=== PATIENT | male | born 1965 | race Caucasian/White ===

== ENCOUNTER 2016-12-08 03:48 | Inpatient (IN) | payer OTHER ==
--- NOTE | 2016-12-08 04:09 | HP ---
CIWA Score - CIWA Score Nausea/Vomitin Muscle Tremors: 4-Moderate,w/Arms Extend Anxiety: 4-Mod. Anxious/Guarded Agitation: 4-Moderately Restless Paroxysmal Sweats: 3 Orientation: 0-Oriented Tacttile Disturbances: 3-Moderate Itch/Numb/Burn Auditory Disturbances: 0-None Visual Disturbances: 0-None Headache: 1-Very Mild CIWA-Ar Total Score: 22 Admission ROS BHS - HPI Chief Complaint: C/O WITHDRAWAL SX'S. SEEKING DETOX Allergies/Adverse Reactions: Allergies Allergy/AdvReac Type Severity Reaction Status Date / Time No Known Allergies Allergy Verified 12/08/16 04:03 History of Present Illness: 51 Y.O. MALE WITH ALCOHOLISM KNOWN TO [facility] ADMITTED FOR DETOX TXMENT. CLIENT WAS SENT BY [facility] AFTER GOING THERE FOR ABD/N/V. CLIENT WAS DX WITH THROMBOCYTOPENIA 2/2 CIRRHOSIS AND MEDICALLY CLEARED FOR DETOX/REHAB TXMENT AT THIS TIME. CLIENT PRESENTLY DENIES ANY C/O EXCEPT FOR WITHDRAWAL SX'S. REPORTS LONGEST SOBRIETY 1 YEAR. Exam Limitations: No Limitations - Ebola screening Have you traveled outside of the country in the last 21 days: No Have you had contact with anyone from an Ebola affected area: No Have you been sick,other than usual withdrawal symptoms: No Do you have a fever: No - Review of Systems Constitutional: Chills, Night Sweats, Changes in sleep EENT: reports: Dental Problems (DENTURES) Respiratory: reports: No Symptoms reported Cardiac: reports: No Symptoms Reported GI: reports: Nausea, Vomiting, Abdominal cramping : reports: No Symptoms Reported Musculoskeletal: reports: No Symptoms Reported Integumentary: reports: No Symptoms Reported Neuro: reports: Seizure (R/T ETOH WITHDRAWAL) Endocrine: reports: No Symptoms Reported Hematology: reports: Other (THROMBOCYTOPENIA) Psychiatric: reports: Anxious, Depressed Other Systems: Reviewed and Negative Patient History - Patient Medical History Hx Anemia: No Hx Asthma: Yes (on albuterol inhaler) Hx Chronic Obstructive Pulmonary Disease (COPD): No Hx Cancer: No Hx Cardiac Disorders: No Hx Congestive Heart Failure: No Hx Hypertension: Yes (NON COMPLAINT WITH MEDS OVER A MONTH) Hx Hypercholesterolemia: No Hx Pacemaker: No HX Cerebrovascular Accident: No Hx Seizures: No Hx Dementia: No Hx Diabetes: No Hx Gastrointestinal Disorders: Yes (upper gi bleeding admitted at [facility] in 11/28) Hx Liver Disease: Yes (cirrhosis) Hx Genitourinary Disorders: No Hx Sexually Transmitted Disorders: No Hx Renal Disease (ESRD): No Hx Thyroid Disease: No Hx Human Immunodeficiency Virus (HIV): No Hx Hepatitis C: No Hx Depression: Yes (AND ANXIETY) Hx Suicide Attempt: No Hx Bipolar Disorder: No Hx Schizophrenia: No Other Medical History: THROMBOCYTOPENIA 2/2 CIRROHSIS - Patient Surgical History Past Surgical History: No Hx Neurologic Surgery: No Hx Cataract Extraction: No Hx Cardiac Surgery: No Hx Lung Surgery: No Hx Breast Surgery: No Hx Breast Biopsy: No Hx Abdominal Surgery: No Hx Appendectomy: No Hx Cholecystectomy: No Hx Genitourinary Surgery: No Hx Section: No Hx Orthopedic Surgery: No Anesthesia Reaction: No - PPD History Previous Implant?: Yes Documented Results: Negative w/proof Implanted On Prior [facility] Admission?: Yes Date: 07/17/16 Results: 0MM PPD to be Administered?: No - Smoking Cessation Smoking history: Current every day smoker Aproximately how many cigarettes per day: 5 Cigars Per Day: 0 Hx Chewing Tobacco Use: No Initiated information on smoking cessation: Yes 'Breaking Loose' booklet given: 12/08/16 - Substance & Tx. History Hx Alcohol Use: Yes Hx Substance Use: Yes Substance Use Type: Alcohol Hx Substance Use Treatment: Yes ([facility]) - Substances Abused VODKA Route: Oral Frequency: Daily Amount used: 1 PINT Age of first use: 24 Date of Last Use: 12/07/16 Family Disease History - Family Disease History Family Disease History: Diabetes: Brother, Respiratory: Mother Admission Physical Exam [facility] Physical General Appearance: Yes: Mild Distress, Alcohol on Breath, Tremorous, Anxious HEENTM: Yes: EOMI, Normocephalic, Normal Voice, AMANDA, Pharynx Normal, Other ( DENTURES) Respiratory: Yes: Chest Non-Tender, Lungs Clear, Normal Breath Sounds, No Respiratory Distress, No Accessory Muscle Use Neck: Yes: No masses,lesions,Nodules, Supple, Trachea in good position Breast: Yes: Breast Exam Deferred Cardiology: Yes: Regular Rhythm, Regular Rate, S1, S2 Abdominal: Yes: Normal Bowel Sounds, Non Tender, Soft, Protuberent Genitourinary: Yes: Within Normal Limits Back: Yes: Normal Inspection Musculoskeletal: Yes: full range of Motion, Gait Steady Extremities: Yes: Normal Range of Motion, Non-Tender, Tremors Neurological: Yes: 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 intact, Fully Oriented, Alert, Motor Strength 5/5 Integumentary: Yes: Dry, Warm, Pitting Edema (3+ BLE) Lymphatic: Yes: Within Normal Limits - Diagnostic (1) Alcohol dependence with uncomplicated withdrawal Current Visit: No Status: Acute (2) Asthma Current Visit: No Status: Acute (3) Cirrhosis of liver Current Visit: No Status: Chronic Qualifiers: Hepatic cirrhosis type: alcoholic cirrhosis (4) Nicotine dependence Current Visit: Yes Status: Acute (5) Thrombocytopenia Current Visit: Yes Status: Acute (6) Alcohol related seizure Current Visit: Yes Status: Acute (7) HTN (hypertension) Current Visit: Yes Status: Acute Cleared for Admission S - Detox or Rehab [facility] Level of Care: Medically Managed Detox Regimen/Protocol: Librium BHS Breath Alcohol Content Breath Alcohol Content: 0.045 Vital Signs - Vital Signs Vital Signs Refused: No Temperature: 97.9 F Temperature Source: Oral Pulse Rate: 84 Respiratory Rate: 20 Blood Pressure: 140/71 BP Location: Left Arm Blood Pressure Position: Sitting - Height Height: 5 ft 3 in - Weight Weight: 90.718 kg Weight Measurement Method: Stated by Patient Body Mass Index (BMI): 35.4 Urine Drug Screen - Test Device Lot Number: [id number] Expiration Date: 08/15/18 - Control Is Test Valid: Yes - Results Drug Screen Negative: Yes
[2016-12-08 04:20] VITALS: BMI 35.4
[2016-12-08] MEDS ORDERED: P-EPHED 60MG/TRIPROLIDI 2.5MG TABLET PO PRN (04:22)
[2016-12-08] MEDS ORDERED: MAGNESIUM CITRATE 300 ML BOTTLE PO PRN (04:22)
[2016-12-08] MEDS ORDERED: hydrOXYzine PAMOATE 50 MG CAPSULE (FP) PO PRN (04:22)
[2016-12-08] MEDS ORDERED: guaiFENesin/D-METHORPHAN HB 10 ML UNIT-DOSE CUPS PO PRN (04:22)
[2016-12-08] MEDS ORDERED: ACETAMINOPHEN 325 MG TABLET (FP) PO PRN (04:22)
[2016-12-08] MEDS ORDERED: chlordiazePOXIDE HCL 25 MG CAPSULE PO PRN (04:22)
[2016-12-08] MEDS ORDERED: MAG HYDROX/AL HYDROX/SIMETH 30 ML UNIT-DOSE CUP PO PRN (04:22)
[2016-12-08] MEDS ORDERED: LOPERAMIDE HCL 2 MG CAPSULE PO PRN (04:22)
[2016-12-08] MEDS ORDERED: NICOTINE POLACRILEX 2 MG GUM BC PRN (04:22)
[2016-12-08] MEDS ORDERED: MENTHOL/PHENOL 1 EACH UD MM PRN (04:22)
[2016-12-08] MEDS ORDERED: MAGNESIUM HYDROX 2400MG/30ML ORAL SUSPENSION 30 ML CUP PO PRN (04:22)
[2016-12-08] MEDS ORDERED: ALBUTEROL SO4 2.5/IPRATROPIUM 0.5 INH SOL 3 ML VIAL.NEB. NEB PRN (04:28)
[2016-12-08] MEDS: chlordiazePOXIDE HCL 25 MG CAPSULE PO SCH ×4 (05:01→22:37)
[2016-12-08] MEDS: PANTOPRAZOLE 40 MG TABLET (FP) PO SCH (10:52)
[2016-12-08] MEDS: PRENATAL VITAMINS W/ FOLIC ACID TABLET (FP) PO SCH (10:54)
[2016-12-08] MEDS: NICOTINE 14 MG/24 HOURS TOPICAL PATCH TD SCH (10:54)
[2016-12-08 11:19] LABS: MCH 36.2 pg (25.7-33.7); MEAN CELL VOLUME 106.5 fl (80-96); MEAN PLT VOLUME 9.1 fl (7.5-11.1); RDW 15.6 % (11.9-15.9); WHITE BLOOD COUNT 2.3 K/mm3 (4.0-10.0)
[2016-12-08 11:21] LABS: PLATELET COUNT 18 K/MM3 (134-434)
[2016-12-08 11:27] LABS: ALBUMIN 2.3 g/dl (3.4-5.0); ANION GAP 11 (8-16); CALCIUM 7.3 mg/dL (8.5-10.1); CO2 27 mmol/L (21-32); GLUCOSE,RANDOM 184 mg/dL (74-106)
[2016-12-08 11:34] LABS: ALK PHOS 230 U/L (45-117); BILIRUBIN,TOTAL 6.8 mg/dL (0.2-1.0); CREATININE 0.8 mg/dL (0.7-1.3); SGOT/AST 74 U/L (15-37); SGPT/ALT 32 U/L (12-78); TOT PROT 5.6 g/dl (6.4-8.2)
[2016-12-08 11:48] LABS: ANISOCYTOSIS 2+; HYPOCHROMIA 1+; PLATELET COMMENT2 NO CLOTTING DETECTED; PLATELET ESTIMATE MARKEDLY DECREASED (NORMAL); POIKILOCYTOSIS 2+
--- NOTE | 2016-12-08 12:38 | PN ---
[facility] Progress Note Note: Pt. was admitted earlier this morning, C/O withdrawal sx. Vital Signs - 8 hr 12/08/16 12/08/16 12/08/16 06:23 06:54 09:29 Temperature 98.0 F 98.3 F Pulse Rate 84 86 Respiratory 16 18 18 Rate Blood Pressure 115/75 131/82 Laboratory Tests 12/08/16 12/08/16 09:15 09:15 WBC 2.3 L D RBC 3.29 L Hgb 11.9 D Hct 35.0 L MCV 106.5 H MCHC 34.0 RDW 15.6 Plt Count 18 L* D MPV 9.1 D Differential Comment Slide scanned Platelet Estimate Markedly decreased Platelet Comment No clotting detected Hypochromic-Microcytic 1+ Poikilocytosis 2+ Anisocytosis 2+ Macrocytosis 2+ Sodium 141 Potassium 3.2 L Chloride 103 Carbon Dioxide 27 Anion Gap 11 BUN 5 L D Creatinine 0.8 Creat Clearance w eGFR > 60 Random Glucose 184 H D Calcium 7.3 L D Total Bilirubin 6.8 H D AST 74 H D ALT 32 Alkaline Phosphatase 230 H D Total Protein 5.6 L Albumin 2.3 L D K+ 3.2, Platelets 18,000 We'll repeat labs on 12/10/16
--- NOTE | 2016-12-08 12:54 | CONSULT ---
[facility] Psychiatric Consult - Data Date of interview: 12/08/16 Admission source: [facility] Identifying data: Another admission to [facility] for this 51 y/o [place]- born male seeking detox treatment on for alcohol dependence.Patient is ,a father of two,domiciled in [facility] and employed. Substance Abuse History: - Smoking Cessation. Smoking history: Current every day smoker. Aproximately how many cigarettes per day: 5. Cigars Per Day: 0. Hx Chewing Tobacco Use: No. Initiated information on smoking cessation: Yes. ' Breaking Loose' booklet given: 12/08/16. - Substance & Tx. History. Hx Alcohol Use: Yes. Hx Substance Use: Yes. Substance Use Type: Alcohol. Hx Substance Use Treatment: Yes ([facility]). - Substances Abused. VODKA. Route: Oral. Frequency: Daily. Amount used: 1 PINT. Age of first use: 24. Date of Last Use: 12/07/16. Confirmed by patient. Medical History: Bronchial asthma,cirrhosis of the liver,thrombocytopenia and a history of GI bleeding in 2014 (treated at [facility]). Psychiatric History: Patient denies. Physical/Sexual Abuse/Trauma History: Patient denies. Additional Comment: Drug Screen Negative: Yes.Noted. Mental Status Exam - Mental Status Exam Alert and Oriented to: Time, Place, Person Cognitive Function: Good Patient Appearance: Well Groomed (short stature,obese) Mood: Hopeful, Euthymic Affect: Normal Range Patient Behavior: Appropriate, Cooperative Speech Pattern: Clear Voice Loudness: Normal Thought Process: Goal Oriented Thought Disorder: Not Present Hallucinations: Denies Suicidal Ideation: Denies Homicidal Ideation: Denies Insight/Judgement: Poor Sleep: Fair Appetite: Good Muscle strength/Tone: Normal Gait/Station: Normal Psychiatric Findings - Problem List ([place] 1, 2,3) (1) Alcohol dependence with uncomplicated withdrawal Current Visit: Yes Status: Acute (2) Nicotine dependence Current Visit: Yes Status: Acute (3) HTN (hypertension) Current Visit: Yes Status: Chronic (4) Thrombocytopenia Current Visit: Yes Status: Chronic (5) Asthma Current Visit: Yes Status: Chronic (6) Cirrhosis of liver Current Visit: Yes Status: Chronic Qualifiers: Hepatic cirrhosis type: alcoholic cirrhosis (7) Obesity Current Visit: Yes Status: Chronic - Initial Treatment Plan Initial Treatment Plan: Psychoeducation.Detoxification.Observation.
[2016-12-08] MEDS: POTASSIUM CHLORIDE TABS 20 MEQ TABLET.ER (FP) PO SCH ×2 (13:38→22:37)
--- NOTE | 2016-12-08 18:24 | EKG ---
Test Reason : Blood Pressure : / mmHG Vent. Rate : 080 BPM Atrial Rate : 080 BPM P-R Int : 142 ms QRS Dur : 096 ms QT Int : 472 ms P-R-T Axes : 007 -05 032 degrees QTc Int : 544 ms NORMAL SINUS RHYTHM PROLONGED QT ABNORMAL ECG WHEN COMPARED WITH ECG OF 12-OCT-2013 11:16, VENT. RATE HAS DECREASED BY [address] NO LONGER ELEVATED IN INFERIOR LEADS Confirmed by EDITH ZUNIGA, SHERRI ([id number]) on 12/08/2016 6:23:55 PM Referred By: Confirmed By:SHERRI SHARMA MD
[2016-12-08] MEDS: diphenhydrAMINE HCL 50 MG CAPSULE PO PRN (22:37)
[2016-12-08] MEDS: THIAMINE HCL 100 MG TABLET (FP) PO SCH (22:37)
[2016-12-09] MEDS: chlordiazePOXIDE HCL 25 MG CAPSULE PO SCH ×4 (05:50→22:44)
[2016-12-09] MEDS: PANTOPRAZOLE 40 MG TABLET (FP) PO SCH (10:36)
[2016-12-09] MEDS: POTASSIUM CHLORIDE TABS 20 MEQ TABLET.ER (FP) PO SCH ×2 (10:36→22:43)
[2016-12-09] MEDS: PRENATAL VITAMINS W/ FOLIC ACID TABLET (FP) PO SCH (10:36)
[2016-12-09] MEDS: NICOTINE 14 MG/24 HOURS TOPICAL PATCH TD SCH (10:37)
[2016-12-09 10:56] LABS: URINE APPEARANCE CLEAR; URINE BILIRUBIN NEGATIVE (NEGATIVE); URINE BLOOD NEGATIVE (NEGATIVE); URINE COLOR YELLOW; URINE GLUCOSE (UA) NEGATIVE (NEGATIVE); URINE KETONE NEGATIVE (NEGATIVE); URINE LEUK ESTERASE NEGATIVE (NEGATIVE); URINE NITRITE NEGATIVE (NEGATIVE); URINE PROTEIN NEGATIVE (NEGATIVE); URINE UROBILINOGEN 2.0 E.U/dl E.U./dl (0.2-1.0)
--- NOTE | 2016-12-09 11:30 | PN ---
[facility] CIWA - CIWA Score Nausea/Vomitin-No Nausea/No Vomiting Muscle Tremors: 4-Moderate,w/Arms Extend Anxiety: 4-Mod. Anxious/Guarded Agitation: 4-Moderately Restless Paroxysmal Sweats: 3 Orientation: 0-Oriented Tacttile Disturbances: 0-None Auditory Disturbances: 0-None Visual Disturbances: 0-None Headache: 0-None Present CIWA-Ar Total Score: 15 S Progress Note (SOAP) Subjective: Anxiety,tremors,sweating,interrupted sleep,restless Objective: 12/09/16 11:29 Vital Signs - 8 hr 12/09/16 12/09/16 12/09/16 03:33 06:26 09:37 Temperature 98.9 F 95.5 F L Pulse Rate 78 96 H Respiratory 18 18 18 Rate Blood Pressure 122/74 132/85 Laboratory Tests 12/08/16 12/08/16 12/08/16 09:15 09:15 09:15 WBC 2.3 L D RBC 3.29 L Hgb 11.9 D Hct 35.0 L MCV 106.5 H MCHC 34.0 RDW 15.6 Plt Count 18 L* D MPV 9.1 D Differential Comment Slide scanned Platelet Estimate Markedly decreased Platelet Comment No clotting detected Hypochromic-Microcytic 1+ Poikilocytosis 2+ Anisocytosis 2+ Macrocytosis 2+ Sodium 141 Potassium 3.2 L Chloride 103 Carbon Dioxide 27 Anion Gap 11 BUN 5 L D Creatinine 0.8 Creat Clearance w eGFR > 60 Random Glucose 184 H D Calcium 7.3 L D Total Bilirubin 6.8 H D AST 74 H D ALT 32 Alkaline Phosphatase 230 H D Total Protein 5.6 L Albumin 2.3 L D Urine Color Urine Appearance Urine pH Ur Specific [place] Urine Protein Urine Glucose (UA) Urine Ketones Urine Blood Urine Nitrite Urine Bilirubin Urine Urobilinogen Ur Leukocyte Esterase RPR Titer Nonreactive 12/09/16 07:30 WBC RBC Hgb Hct MCV MCHC RDW Plt Count MPV Differential Comment Platelet Estimate Platelet Comment Hypochromic-Microcytic Poikilocytosis Anisocytosis Macrocytosis Sodium Potassium Chloride Carbon Dioxide Anion Gap BUN Creatinine Creat Clearance w eGFR Random Glucose Calcium Total Bilirubin AST ALT Alkaline Phosphatase Total Protein Albumin Urine Color Yellow Urine Appearance Clear Urine pH 9.0 H Ur Specific [place] 1.006 Urine Protein Negative Urine Glucose (UA) Negative Urine Ketones Negative Urine Blood Negative Urine Nitrite Negative Urine Bilirubin Negative Urine Urobilinogen 2.0 e.u/dl Ur Leukocyte Esterase Negative RPR Titer labs noted [id number] started Assessment: 12/09/16 11:29 Withdrawal sx. Plan: Continue detox
[2016-12-09] MEDS: diphenhydrAMINE HCL 50 MG CAPSULE PO PRN (22:43)
[2016-12-09] MEDS: THIAMINE HCL 100 MG TABLET (FP) PO SCH (22:44)
[2016-12-10] MEDS: chlordiazePOXIDE 5 MG CAPSULE PO SCH ×4 (05:13→22:51)
[2016-12-10 09:51] LABS: MCH 36.4 pg (25.7-33.7); MCHC 33.9 g/dl (32.0-35.9); MEAN CELL VOLUME 107.5 fl (80-96); MEAN PLT VOLUME 9.4 fl (7.5-11.1); RDW 15.8 % (11.9-15.9); WHITE BLOOD COUNT 2.9 K/mm3 (4.0-10.0)
[2016-12-10 10:10] LABS: PLATELET COUNT 20 K/MM3 (134-434)
[2016-12-10 10:19] LABS: ALBUMIN 2.1 g/dl (3.4-5.0); ALK PHOS 264 U/L (45-117); ANION GAP 8 (8-16); BILIRUBIN,TOTAL 3.6 mg/dL (0.2-1.0); CALCIUM 8.1 mg/dL (8.5-10.1); CO2 29 mmol/L (21-32); CREATININE 0.8 mg/dL (0.7-1.3); GLUCOSE,RANDOM 111 mg/dL (74-106); SGOT/AST 57 U/L (15-37); SGPT/ALT 28 U/L (12-78); TOT PROT 5.2 g/dl (6.4-8.2)
[2016-12-10] MEDS: PANTOPRAZOLE 40 MG TABLET (FP) PO SCH (10:42)
[2016-12-10] MEDS: NICOTINE 14 MG/24 HOURS TOPICAL PATCH TD SCH (10:42)
[2016-12-10] MEDS: POTASSIUM CHLORIDE TABS 20 MEQ TABLET.ER (FP) PO SCH ×2 (10:42→22:51)
[2016-12-10] MEDS: PRENATAL VITAMINS W/ FOLIC ACID TABLET (FP) PO SCH (10:42)
--- NOTE | 2016-12-10 11:16 | PN ---
S CIWA - CIWA Score Nausea/Vomitin-Mild Nausea/No Vomiting Muscle Tremors: 4-Moderate,w/Arms Extend Anxiety: 3 Agitation: 3 Paroxysmal Sweats: 3 Orientation: 0-Oriented Tacttile Disturbances: 1-Very Mild Itch/Numbness Auditory Disturbances: 0-None Visual Disturbances: 0-None Headache: 0-None Present CIWA-Ar Total Score: 15 BHS Progress Note (SOAP) Subjective: Sweating,anxiety,tremors,interrupted sleep. Objective: 12/10/16 11:12 Vital Signs - 8 hr 12/10/16 12/10/16 12/10/16 03:35 06:16 10:28 Temperature 98.1 F 97 F L Pulse Rate 88 86 Respiratory 18 16 20 Rate Blood Pressure 106/64 108/71 Laboratory Tests 12/08/16 12/08/16 12/08/16 09:15 09:15 09:15 WBC 2.3 L D RBC 3.29 L Hgb 11.9 D Hct 35.0 L MCV 106.5 H MCHC 34.0 RDW 15.6 Plt Count 18 L* D MPV 9.1 D Differential Comment Slide scanned Platelet Estimate Markedly decreased Platelet Comment No clotting detected Hypochromic-Microcytic 1+ Poikilocytosis 2+ Anisocytosis 2+ Macrocytosis 2+ Sodium 141 Potassium 3.2 L Chloride 103 Carbon Dioxide 27 Anion Gap 11 BUN 5 L D Creatinine 0.8 Creat Clearance w eGFR > 60 Random Glucose 184 H D Calcium 7.3 L D Total Bilirubin 6.8 H D AST 74 H D ALT 32 Alkaline Phosphatase 230 H D Total Protein 5.6 L Albumin 2.3 L D Urine Color Urine Appearance Urine pH Ur Specific [place] Urine Protein Urine Glucose (UA) Urine Ketones Urine Blood Urine Nitrite Urine Bilirubin Urine Urobilinogen Ur Leukocyte Esterase RPR Titer Nonreactive 12/09/16 12/10/16 12/10/16 07:30 07:00 07:00 WBC 2.9 L RBC 3.02 L Hgb 11.0 L Hct 32.4 L MCV 107.5 H MCHC 33.9 RDW 15.8 Plt Count 20 L* MPV 9.4 Differential Comment Platelet Estimate Platelet Comment Hypochromic-Microcytic Poikilocytosis Anisocytosis Macrocytosis Sodium 142 Potassium 3.6 Chloride 105 Carbon Dioxide 29 Anion Gap 8 BUN 5 L Creatinine 0.8 Creat Clearance w eGFR > 60 Random Glucose 111 H D Calcium 8.1 L Total Bilirubin 3.6 H D AST 57 H D ALT 28 Alkaline Phosphatase 264 H Total Protein 5.2 L Albumin 2.1 L Urine Color Yellow Urine Appearance Clear Urine pH 9.0 H Ur Specific [place] 1.006 Urine Protein Negative Urine Glucose (UA) Negative Urine Ketones Negative Urine Blood Negative Urine Nitrite Negative Urine Bilirubin Negative Urine Urobilinogen 2.0 e.u/dl Ur Leukocyte Esterase Negative RPR Titer labs noted,no evidence of bleeding from thrombocytopenia. Since all cell lines are low, this is pancytopenia caused by alcohol, we'll repeat cbc in AM. Note is made of elevated liver enzymes. Assessment: 12/10/16 11:16 Withdrawal sx. Pancytopenia Transaminitis Plan: Continue detox
[2016-12-10] MEDS: THIAMINE HCL 100 MG TABLET (FP) PO SCH (22:51)
[2016-12-10] MEDS: diphenhydrAMINE HCL 50 MG CAPSULE PO PRN (22:52)
[2016-12-11] MEDS: chlordiazePOXIDE HCL 10 MG CAPSULE PO SCH ×4 (05:20→22:45)
[2016-12-11] MEDS ORDERED: chlordiazePOXIDE 5 MG CAPSULE ONE (09:17)
[2016-12-11 10:28] LABS: CALCIUM 8.7 mg/dL (8.5-10.1)
[2016-12-11] MEDS: PRENATAL VITAMINS W/ FOLIC ACID TABLET (FP) PO SCH (10:34)
[2016-12-11] MEDS: PANTOPRAZOLE 40 MG TABLET (FP) PO SCH (10:34)
[2016-12-11] MEDS: POTASSIUM CHLORIDE TABS 20 MEQ TABLET.ER (FP) PO SCH ×2 (10:34→22:45)
[2016-12-11] MEDS: NICOTINE 14 MG/24 HOURS TOPICAL PATCH TD SCH (10:35)
--- NOTE | 2016-12-11 12:12 | PN ---
S Progress Note (SOAP) Subjective: Sweating,interrupted sleep,restless. Objective: 12/11/16 12:10 Vital Signs - 8 hr 12/11/16 06:04 Temperature 96.9 F L Pulse Rate 72 Respiratory 18 Rate Blood Pressure 105/67 Laboratory Last Values WBC 2.9 K/mm3 (4.0-10.0) L 12/10/16 07:00 RBC 3.02 M/mm3 (4.00-5.60) L 12/10/16 07:00 Hgb 11.0 GM/dL (11.7-16.9) L 12/10/16 07:00 Hct 32.4 % (35.4-49) L 12/10/16 07:00 MCV 107.5 fl (80-96) H 12/10/16 07:00 MCHC 33.9 g/dl (32.0-35.9) 12/10/16 07:00 RDW 15.8 % (11.9-15.9) 12/10/16 07:00 Plt Count 20 K/MM3 (134-434) L* 12/10/16 07:00 MPV 9.4 fl (7.5-11.1) 12/10/16 07:00 Differential Comment Slide scanned 12/08/16 09:15 Platelet Estimate Markedly decreased (NORMAL) 12/08/16 09:15 Platelet Comment No clumping noted 12/08/16 09:15 Platelet Comment No clotting detected 12/08/16 09:15 Hypochromic-Microcytic 1+ 12/08/16 09:15 Poikilocytosis 2+ 12/08/16 09:15 Anisocytosis 2+ 12/08/16 09:15 Macrocytosis 2+ 12/08/16 09:15 Sodium 142 mmol/L (136-145) 12/10/16 07:00 Potassium 3.6 mmol/L (3.5-5.1) 12/10/16 07:00 Chloride 105 mmol/L (98-107) 12/10/16 07:00 Carbon Dioxide 29 mmol/L (21-32) 12/10/16 07:00 Anion Gap 8 (8-16) 12/10/16 07:00 BUN 5 mg/dL (7-18) L 12/10/16 07:00 Creatinine 0.8 mg/dL (0.7-1.3) 12/10/16 07:00 Creat Clearance w eGFR > 60 (>60) 12/10/16 07:00 Random Glucose 111 mg/dL (74-106) H D 12/10/16 07:00 Fasting Glucose 119 mg/dL (70-105) H 12/11/16 07:00 Calcium 8.7 mg/dL (8.5-10.1) 12/11/16 07:00 Total Bilirubin 4.0 mg/dL (0.2-1.0) H 12/11/16 07:00 AST 52 U/L (15-37) H 12/11/16 07:00 ALT 28 U/L (12-78) 12/10/16 07:00 Alkaline Phosphatase 296 U/L (45-117) H 12/11/16 07:00 Total Protein 5.2 g/dl (6.4-8.2) L 12/10/16 07:00 Albumin 2.1 g/dl (3.4-5.0) L 12/10/16 07:00 Urine Color Yellow 12/09/16 07:30 Urine Appearance Clear 12/09/16 07:30 Urine pH 9.0 (5.0-8.0) H 12/09/16 07:30 Ur Specific [place] 1.006 (1.001-1.035) 12/09/16 07:30 Urine Protein Negative (NEGATIVE) 12/09/16 07:30 Urine Glucose (UA) Negative (NEGATIVE) 12/09/16 07:30 Urine Ketones Negative (NEGATIVE) 12/09/16 07:30 Urine Blood Negative (NEGATIVE) 12/09/16 07:30 Urine Nitrite Negative (NEGATIVE) 12/09/16 07:30 Urine Bilirubin Negative (NEGATIVE) 12/09/16 07:30 Urine Urobilinogen 2.0 e.u/dl E.U./dl (0.2-1.0) 12/09/16 07:30 Ur Leukocyte Esterase Negative (NEGATIVE) 12/09/16 07:30 RPR Titer Nonreactive (NONREACTIVE) 12/08/16 09:15 labs noted,pt. will F/U with primary provider Assessment: 12/11/16 12:11 Withdrawal sx. Plan: Continue detox
[2016-12-11] MEDS: diphenhydrAMINE HCL 50 MG CAPSULE PO PRN (22:45)
[2016-12-11] MEDS: THIAMINE HCL 100 MG TABLET (FP) PO SCH (22:45)
[2016-12-12 09:18] VITALS: BP 106/72; PULSE 78; TEMP 97.2
[2016-12-12] MEDS: NICOTINE 14 MG/24 HOURS TOPICAL PATCH TD SCH (10:27)
[2016-12-12] MEDS: PRENATAL VITAMINS W/ FOLIC ACID TABLET (FP) PO SCH (10:27)
[2016-12-12] MEDS: PANTOPRAZOLE 40 MG TABLET (FP) PO SCH (10:27)
[2016-12-12] MEDS: POTASSIUM CHLORIDE TABS 20 MEQ TABLET.ER (FP) PO SCH (10:27)
--- NOTE | 2016-12-22 19:25 | DS ---
[facility] Detox Discharge Summary Admission Date: 12/08/16 Discharge Date: 12/12/16 - History Present History: Alcohol Dependence Pertinent Past History: Asthma HTN Cirrhosis of the liver - Physical Exam Results Vital Signs: Vital Signs Temperature 97.2 F L 12/12/16 09:18 Pulse Rate 78 12/12/16 09:18 Respiratory Rate 18 12/12/16 09:18 Blood Pressure 106/72 12/12/16 09:18 O2 Sat by Pulse Oximetry (%) Pertinent Admission Physical Exam Findings: Withdrawal sx. Laboratory Last Values WBC 2.9 K/mm3 (4.0-10.0) L 12/10/16 07:00 RBC 3.02 M/mm3 (4.00-5.60) L 12/10/16 07:00 Hgb 11.0 GM/dL (11.7-16.9) L 12/10/16 07:00 Hct 32.4 % (35.4-49) L 12/10/16 07:00 MCV 107.5 fl (80-96) H 12/10/16 07:00 MCHC 33.9 g/dl (32.0-35.9) 12/10/16 07:00 RDW 15.8 % (11.9-15.9) 12/10/16 07:00 Plt Count 20 K/MM3 (134-434) L* 12/10/16 07:00 MPV 9.4 fl (7.5-11.1) 12/10/16 07:00 Differential Comment Slide scanned 12/08/16 09:15 Platelet Estimate Markedly decreased (NORMAL) 12/08/16 09:15 Platelet Comment No clumping noted 12/08/16 09:15 Platelet Comment No clotting detected 12/08/16 09:15 Hypochromic-Microcytic 1+ 12/08/16 09:15 Poikilocytosis 2+ 12/08/16 09:15 Anisocytosis 2+ 12/08/16 09:15 Macrocytosis 2+ 12/08/16 09:15 Sodium 142 mmol/L (136-145) 12/10/16 07:00 Potassium 3.6 mmol/L (3.5-5.1) 12/10/16 07:00 Chloride 105 mmol/L (98-107) 12/10/16 07:00 Carbon Dioxide 29 mmol/L (21-32) 12/10/16 07:00 Anion Gap 8 (8-16) 12/10/16 07:00 BUN 5 mg/dL (7-18) L 12/10/16 07:00 Creatinine 0.8 mg/dL (0.7-1.3) 12/10/16 07:00 Creat Clearance w eGFR > 60 (>60) 12/10/16 07:00 Random Glucose 111 mg/dL (74-106) H D 12/10/16 07:00 Fasting Glucose 119 mg/dL (70-105) H 12/11/16 07:00 Calcium 8.7 mg/dL (8.5-10.1) 12/11/16 07:00 Total Bilirubin 4.0 mg/dL (0.2-1.0) H 12/11/16 07:00 AST 52 U/L (15-37) H 12/11/16 07:00 ALT 28 U/L (12-78) 12/10/16 07:00 Alkaline Phosphatase 296 U/L (45-117) H 12/11/16 07:00 Total Protein 5.2 g/dl (6.4-8.2) L 12/10/16 07:00 Albumin 2.1 g/dl (3.4-5.0) L 12/10/16 07:00 Urine Color Yellow 12/09/16 07:30 Urine Appearance Clear 12/09/16 07:30 Urine pH 9.0 (5.0-8.0) H 12/09/16 07:30 Ur Specific [place] 1.006 (1.001-1.035) 12/09/16 07:30 Urine Protein Negative (NEGATIVE) 12/09/16 07:30 Urine Glucose (UA) Negative (NEGATIVE) 12/09/16 07:30 Urine Ketones Negative (NEGATIVE) 12/09/16 07:30 Urine Blood Negative (NEGATIVE) 12/09/16 07:30 Urine Nitrite Negative (NEGATIVE) 12/09/16 07:30 Urine Bilirubin Negative (NEGATIVE) 12/09/16 07:30 Urine Urobilinogen 2.0 e.u/dl E.U./dl (0.2-1.0) 12/09/16 07:30 Ur Leukocyte Esterase Negative (NEGATIVE) 12/09/16 07:30 RPR Titer Nonreactive (NONREACTIVE) 12/08/16 09:15 labs noted - Treatment Hospital Course: Detox Protocol Followed, Detoxed Safely, Responded well, Discharged Condition Good, Rehab Referral Accepted Patient has Accepted a Rehab Referral to: [facility] - Medication Discharge Medications: Ambulatory Orders Hctz 25Mg/Triamterene [Dyazide 25/37.5 -] 1 cap PO DAILY capsule 07/19/16 Protonix 40 mg PO DAILY 12/12/16 - Diagnosis (1) Alcohol dependence with uncomplicated withdrawal Status: Acute (2) Nicotine dependence Status: Acute Qualifiers: Nicotine product type: cigarettes Substance use status: uncomplicated Qualified Code(s): F17.210 - Nicotine dependence, cigarettes, uncomplicated (3) Asthma Status: Chronic Qualifiers: Asthma severity: mild intermittent Asthma complication type: uncomplicated Qualified Code(s): J45.20 - Mild intermittent asthma, uncomplicated (4) Cirrhosis of liver Status: Chronic Qualifiers: Hepatic cirrhosis type: alcoholic cirrhosis (5) HTN (hypertension) Status: Chronic Qualifiers: Hypertension type: essential hypertension Qualified Code(s): I10 - Essential (primary) hypertension - AMA Did Patient Leave Against Medical Advice: No
== END 2016-12-12 10:30 | disposition other institution (70) | DRG 775 ==
LOC: YASAS 03:48 → Y3N 04:24
PROVIDERS: ADMIT Internal Medicine; ATTEND Internal Medicine
PROC: HZ2ZZZZ Detoxification Services for Substance Abuse Treatment (ICD-10-PCS; principal; 2016-12-08)
DX: F10.230 Alcohol dependence with withdrawal, uncomplicated (principal); F17.210 Nicotine dependence, cigarettes, uncomplicated; E66.9 Obesity, unspecified; Z68.35 Body mass index [BMI] 35.0-35.9, adult; I10 Essential (primary) hypertension; D69.6 Thrombocytopenia, unspecified; J45.909 Unspecified asthma, uncomplicated; R74.0 Nonspecific elevation of levels of transaminase and lactic acid dehydrogenase [LDH]; D61.818 Other pancytopenia; K70.30 Alcoholic cirrhosis of liver without ascites; Z91.14 Patient's other noncompliance with medication regimen; Z86.69 Personal history of other diseases of the nervous system and sense organs
CPT/HCPCS: 36415; 80053; 81003; 82247; 82310; 82947; 84075; 84450; 85027; 86593; 93005; 93010

== ENCOUNTER 2016-12-12 10:35 | Inpatient (IN) | payer OTHER ==
--- NOTE | 2016-12-12 12:02 | HP ---
Psychiatrist Admission - Data Date of interview: 12/12/16 Admission source: /[facility] Identifying data: This is the second [facility] admission for this 51 years old [place]-born male, father of 3 children, unemployed, domiciled living in a room seeking reheb treatment for alcohol Medical History: Significant for Bronchial asthma, Hypertension, Cirrhosis of the liver, Thrombocytopenia and a history of GI bleeding in 2015 (treated at [facility]) and Alcohol-related seizure. Smokes 5 cigarettes daily Psychiatric History: Denies history of psychiatrid treatment Physical/Sexual Abuse/Trauma History: Denies history of emotional, physical or sexual abuse as well as DV relationship Additional Comment: Reports history of multiple misdemeanor arrests for drinking in public. Denies being on probation at present Allergies/Adverse Reactions: Allergies Allergy/AdvReac Type Severity Reaction Status Date / Time No Known Allergies Allergy Verified 12/08/16 04:03 Date of last physical exam: 12/08/16 Concur with the findings of this exam: Yes - Substance Abuse/Tx History Hx Alcohol Use: Yes Hx Substance Use: No Substance Use Type: Alcohol (Started drinking alcohol at age 24, consumes one pint of vodka daily. Lst drink on 12/07/16) Hx Substance Use Treatment: Yes (5 previous inpt detox & one inpt rehab @ [facility]) - Admission Criteria Previous failed treatment: No Poor recovery environment: Yes Comorbidities: Yes Lacks judgement: Yes Mental Status Exam - Mental Status Exam Alert and Oriented to: Time, Place, Person Cognitive Function: Fair Patient Appearance: Well Groomed Mood: Hopeful, Euthymic Affect: Appropriate Patient Behavior: Cooperative Speech Pattern: Clear Voice Loudness: Normal Thought Process: Intact Thought Disorder: Not Present Hallucinations: Denies Suicidal Ideation: Denies Homicidal Ideation: Denies Insight/Judgement: Fair Sleep: Poorly Appetite: Good Muscle strength/Tone: Normal Gait/Station: Normal Psychiatric Findings - Problem List ([place] 1, 2,3) (1) Alcohol dependence Current Visit: No Status: Acute (2) Nicotine dependence Current Visit: No Status: Acute (3) GI bleed Current Visit: No Status: Acute (4) Cirrhosis of liver Current Visit: No Status: Chronic Qualifiers: Hepatic cirrhosis type: alcoholic cirrhosis (5) HTN (hypertension) Current Visit: No Status: Chronic (6) Obesity Current Visit: No Status: Chronic (7) Thrombocytopenia Current Visit: No Status: Chronic - Initial Treatment Plan Initial Treatment Plan: Monitor progress
[2016-12-12] MEDS ORDERED: guaiFENesin/D-METHORPHAN HB 10 ML UNIT-DOSE CUPS PO PRN (12:16)
[2016-12-12] MEDS ORDERED: MENTHOL/PHENOL 1 EACH UD MM PRN (12:16)
[2016-12-12] MEDS ORDERED: MAG HYDROX/AL HYDROX/SIMETH 30 ML UNIT-DOSE CUP PO PRN (12:16)
[2016-12-12] MEDS ORDERED: ACETAMINOPHEN 325 MG TABLET (FP) PO PRN (12:16)
[2016-12-12] MEDS ORDERED: P-EPHED 60MG/TRIPROLIDI 2.5MG TABLET PO PRN (12:16)
[2016-12-12] MEDS ORDERED: MAGNESIUM CITRATE 300 ML BOTTLE PO PRN (12:16)
[2016-12-12] MEDS ORDERED: IBUPROFEN 400 MG TABLET (FP) PO PRN (12:16)
[2016-12-12] MEDS ORDERED: MAGNESIUM HYDROX 2400MG/30ML ORAL SUSPENSION 30 ML CUP PO PRN (12:16)
[2016-12-12] MEDS ORDERED: LOPERAMIDE HCL 2 MG CAPSULE PO PRN (12:16)
[2016-12-12] MEDS ORDERED: NICOTINE POLACRILEX 4 MG GUM BUC PRN (12:16)
[2016-12-12] MEDS: PANTOPRAZOLE 40 MG TABLET (FP) PO SCH (21:47)
[2016-12-12] MEDS: THIAMINE HCL 100 MG TABLET (FP) PO SCH (21:47)
[2016-12-12] MEDS: diphenhydrAMINE HCL 50 MG CAPSULE PO PRN (21:48)
[2016-12-12] MEDS ORDERED: PANTOPRAZOLE 40 MG TABLET (FP) PO ONE (22:00)
[2016-12-13] MEDS: PRENATAL VITAMINS W/ FOLIC ACID TABLET (FP) PO SCH (10:28)
[2016-12-13] MEDS: TRIAMTERENE AND HCTZ - 37.5 MG/25 MG CAPSULE PO SCH (10:28)
[2016-12-13] MEDS: NICOTINE 21 MG/24 HOURS TOPICAL PATCH TD SCH (10:29)
[2016-12-13] MEDS: PANTOPRAZOLE 40 MG TABLET (FP) PO SCH (21:36)
[2016-12-13] MEDS: THIAMINE HCL 100 MG TABLET (FP) PO SCH (21:36)
[2016-12-13] MEDS: diphenhydrAMINE HCL 50 MG CAPSULE PO PRN (21:36)
[2016-12-14] MEDS: PRENATAL VITAMINS W/ FOLIC ACID TABLET (FP) PO SCH (10:27)
[2016-12-14] MEDS: NICOTINE 21 MG/24 HOURS TOPICAL PATCH TD SCH (10:27)
[2016-12-14] MEDS: TRIAMTERENE AND HCTZ - 37.5 MG/25 MG CAPSULE PO SCH (10:27)
[2016-12-14] MEDS: THIAMINE HCL 100 MG TABLET (FP) PO SCH (21:31)
[2016-12-14] MEDS: diphenhydrAMINE HCL 50 MG CAPSULE PO PRN (21:31)
[2016-12-14] MEDS: PANTOPRAZOLE 40 MG TABLET (FP) PO SCH (21:32)
[2016-12-15] MEDS: PRENATAL VITAMINS W/ FOLIC ACID TABLET (FP) PO SCH (10:26)
[2016-12-15] MEDS: NICOTINE 21 MG/24 HOURS TOPICAL PATCH TD SCH (10:26)
[2016-12-15] MEDS: TRIAMTERENE AND HCTZ - 37.5 MG/25 MG CAPSULE PO SCH (10:26)
[2016-12-15] MEDS: diphenhydrAMINE HCL 50 MG CAPSULE PO PRN (21:47)
[2016-12-15] MEDS: THIAMINE HCL 100 MG TABLET (FP) PO SCH (21:47)
[2016-12-15] MEDS: PANTOPRAZOLE 40 MG TABLET (FP) PO SCH (21:48)
[2016-12-16] MEDS ORDERED: PT OWN MED DRAWER 7, Y5N ONE (09:14)
[2016-12-16] MEDS: NICOTINE 21 MG/24 HOURS TOPICAL PATCH TD SCH (10:41)
[2016-12-16] MEDS: PRENATAL VITAMINS W/ FOLIC ACID TABLET (FP) PO SCH (10:41)
[2016-12-16] MEDS: TRIAMTERENE AND HCTZ - 37.5 MG/25 MG CAPSULE PO SCH (10:41)
[2016-12-16] MEDS: PANTOPRAZOLE 40 MG TABLET (FP) PO SCH (21:29)
[2016-12-16] MEDS: diphenhydrAMINE HCL 50 MG CAPSULE PO PRN (21:29)
[2016-12-16] MEDS: THIAMINE HCL 100 MG TABLET (FP) PO SCH (21:29)
[2016-12-17] MEDS: PRENATAL VITAMINS W/ FOLIC ACID TABLET (FP) PO SCH (10:18)
[2016-12-17] MEDS: NICOTINE 21 MG/24 HOURS TOPICAL PATCH TD SCH (10:18)
[2016-12-17] MEDS: TRIAMTERENE AND HCTZ - 37.5 MG/25 MG CAPSULE PO SCH (10:18)
[2016-12-17] MEDS: diphenhydrAMINE HCL 50 MG CAPSULE PO PRN (22:25)
[2016-12-17] MEDS: THIAMINE HCL 100 MG TABLET (FP) PO SCH (22:25)
[2016-12-17] MEDS: PANTOPRAZOLE 40 MG TABLET (FP) PO SCH (22:25)
[2016-12-18] MEDS: PRENATAL VITAMINS W/ FOLIC ACID TABLET (FP) PO SCH (10:07)
[2016-12-18] MEDS: TRIAMTERENE AND HCTZ - 37.5 MG/25 MG CAPSULE PO SCH (10:07)
[2016-12-18] MEDS: NICOTINE 21 MG/24 HOURS TOPICAL PATCH TD SCH (10:08)
[2016-12-18] MEDS: THIAMINE HCL 100 MG TABLET (FP) PO SCH (21:26)
[2016-12-18] MEDS: diphenhydrAMINE HCL 50 MG CAPSULE PO PRN (21:26)
[2016-12-18] MEDS: PANTOPRAZOLE 40 MG TABLET (FP) PO SCH (21:26)
[2016-12-19] MEDS: NICOTINE 21 MG/24 HOURS TOPICAL PATCH TD SCH (10:36)
[2016-12-19] MEDS: PRENATAL VITAMINS W/ FOLIC ACID TABLET (FP) PO SCH (10:36)
[2016-12-19] MEDS: TRIAMTERENE AND HCTZ - 37.5 MG/25 MG CAPSULE PO SCH (10:36)
[2016-12-19] MEDS: diphenhydrAMINE HCL 50 MG CAPSULE PO PRN (21:40)
[2016-12-19] MEDS: THIAMINE HCL 100 MG TABLET (FP) PO SCH (21:40)
[2016-12-19] MEDS: PANTOPRAZOLE 40 MG TABLET (FP) PO SCH (21:40)
[2016-12-20] MEDS: TRIAMTERENE AND HCTZ - 37.5 MG/25 MG CAPSULE PO SCH (10:11)
[2016-12-20] MEDS: PRENATAL VITAMINS W/ FOLIC ACID TABLET (FP) PO SCH (10:11)
[2016-12-20] MEDS: NICOTINE 21 MG/24 HOURS TOPICAL PATCH TD SCH (10:12)
[2016-12-20] MEDS: PANTOPRAZOLE 40 MG TABLET (FP) PO SCH (21:32)
[2016-12-20] MEDS: THIAMINE HCL 100 MG TABLET (FP) PO SCH (21:33)
[2016-12-21 09:59] LABS: MCH 36.3 pg (25.7-33.7); MCHC 33.8 g/dl (32.0-35.9); MEAN CELL VOLUME 107.4 fl (80-96); MEAN PLT VOLUME 11.8 fl (7.5-11.1); PLATELET COUNT 47 K/MM3 (134-434); WHITE BLOOD COUNT 4.5 K/mm3 (4.0-10.0)
[2016-12-21 10:03] LABS: INR 1.4 (0.82-1.09); PROTHROMBIN TIME (PATIENT) 15.5 SEC (9.98-11.88)
[2016-12-21] MEDS: TRIAMTERENE AND HCTZ - 37.5 MG/25 MG CAPSULE PO SCH (10:11)
[2016-12-21] MEDS: NICOTINE 21 MG/24 HOURS TOPICAL PATCH TD SCH (10:11)
[2016-12-21] MEDS: PRENATAL VITAMINS W/ FOLIC ACID TABLET (FP) PO SCH (10:11)
[2016-12-21 10:27] LABS: ALBUMIN 2.7 g/dl (3.4-5.0); ALK PHOS 310 U/L (45-117); ANION GAP 9 (8-16); BILIRUBIN,TOTAL 3.8 mg/dL (0.2-1.0); CALCIUM 8.6 mg/dL (8.5-10.1); CO2 28 mmol/L (21-32); COCKROFT - GAULT 129.1; CREATININE 0.8 mg/dL (0.7-1.3); GLUCOSE,RANDOM 122 mg/dL (74-106); SGOT/AST 67 U/L (15-37); SGPT/ALT 37 U/L (12-78); TOT PROT 6.4 g/dl (6.4-8.2)
[2016-12-21 11:17] LABS: ANISOCYTOSIS 2+
[2016-12-21] MEDS: PANTOPRAZOLE 40 MG TABLET (FP) PO SCH (21:59)
[2016-12-21] MEDS: THIAMINE HCL 100 MG TABLET (FP) PO SCH (21:59)
[2016-12-21] MEDS: diphenhydrAMINE HCL 50 MG CAPSULE PO PRN (22:00)
[2016-12-22] MEDS: NICOTINE 21 MG/24 HOURS TOPICAL PATCH TD SCH (10:27)
[2016-12-22] MEDS: PRENATAL VITAMINS W/ FOLIC ACID TABLET (FP) PO SCH (10:27)
[2016-12-22] MEDS: TRIAMTERENE AND HCTZ - 37.5 MG/25 MG CAPSULE PO SCH (10:27)
[2016-12-22] MEDS: THIAMINE HCL 100 MG TABLET (FP) PO SCH (21:50)
[2016-12-22] MEDS: PANTOPRAZOLE 40 MG TABLET (FP) PO SCH (21:51)
[2016-12-23] MEDS: PRENATAL VITAMINS W/ FOLIC ACID TABLET (FP) PO SCH (10:22)
[2016-12-23] MEDS: TRIAMTERENE AND HCTZ - 37.5 MG/25 MG CAPSULE PO SCH (10:22)
[2016-12-23] MEDS: NICOTINE 21 MG/24 HOURS TOPICAL PATCH TD SCH (10:23)
[2016-12-23] MEDS: THIAMINE HCL 100 MG TABLET (FP) PO SCH (22:04)
[2016-12-23] MEDS: PANTOPRAZOLE 40 MG TABLET (FP) PO SCH (22:04)
[2016-12-23] MEDS: ALBUTEROL SO4 6.7 GM HFA INHALER IH PRN (22:10)
[2016-12-24] MEDS: TRIAMTERENE AND HCTZ - 37.5 MG/25 MG CAPSULE PO SCH (10:31)
[2016-12-24] MEDS: PRENATAL VITAMINS W/ FOLIC ACID TABLET (FP) PO SCH (10:31)
[2016-12-24] MEDS: NICOTINE 21 MG/24 HOURS TOPICAL PATCH TD SCH (10:32)
[2016-12-24] MEDS: ALBUTEROL SO4 6.7 GM HFA INHALER IH PRN ×2 (10:33→22:10)
[2016-12-24] MEDS ORDERED: PT OWN MED DRAWER 7, Y5N ONE ×2 (10:34→22:11)
[2016-12-24] MEDS: PANTOPRAZOLE 40 MG TABLET (FP) PO SCH (22:06)
[2016-12-24] MEDS: THIAMINE HCL 100 MG TABLET (FP) PO SCH (22:06)
[2016-12-25] MEDS: PRENATAL VITAMINS W/ FOLIC ACID TABLET (FP) PO SCH (10:38)
[2016-12-25] MEDS: NICOTINE 21 MG/24 HOURS TOPICAL PATCH TD SCH (10:38)
[2016-12-25] MEDS: TRIAMTERENE AND HCTZ - 37.5 MG/25 MG CAPSULE PO SCH (10:38)
[2016-12-25] MEDS: ALBUTEROL SO4 6.7 GM HFA INHALER IH PRN (10:40)
[2016-12-25] MEDS ORDERED: PT OWN MED DRAWER 7, Y5N ONE (10:41)
[2016-12-25] MEDS: PANTOPRAZOLE 40 MG TABLET (FP) PO SCH (21:24)
[2016-12-25] MEDS: THIAMINE HCL 100 MG TABLET (FP) PO SCH (21:24)
[2016-12-26] MEDS: PRENATAL VITAMINS W/ FOLIC ACID TABLET (FP) PO SCH (10:25)
[2016-12-26] MEDS: TRIAMTERENE AND HCTZ - 37.5 MG/25 MG CAPSULE PO SCH (10:25)
[2016-12-26] MEDS: NICOTINE 21 MG/24 HOURS TOPICAL PATCH TD SCH (10:25)
[2016-12-26] MEDS: ALBUTEROL SO4 6.7 GM HFA INHALER IH PRN ×2 (10:27→21:30)
[2016-12-26] MEDS ORDERED: PT OWN MED DRAWER 7, Y5N ONE ×2 (10:27→21:30)
[2016-12-26] MEDS: THIAMINE HCL 100 MG TABLET (FP) PO SCH (21:28)
[2016-12-26] MEDS: PANTOPRAZOLE 40 MG TABLET (FP) PO SCH (21:28)
[2016-12-27] MEDS: NICOTINE 21 MG/24 HOURS TOPICAL PATCH TD SCH (10:16)
[2016-12-27] MEDS: PRENATAL VITAMINS W/ FOLIC ACID TABLET (FP) PO SCH (10:16)
[2016-12-27] MEDS: TRIAMTERENE AND HCTZ - 37.5 MG/25 MG CAPSULE PO SCH (10:16)
[2016-12-27] MEDS: ALBUTEROL SO4 6.7 GM HFA INHALER IH PRN ×2 (10:17→21:56)
[2016-12-27] MEDS ORDERED: PT OWN MED DRAWER 7, Y5N ONE ×2 (10:18→21:57)
[2016-12-27] MEDS: PANTOPRAZOLE 40 MG TABLET (FP) PO SCH (21:55)
[2016-12-27] MEDS: THIAMINE HCL 100 MG TABLET (FP) PO SCH (21:55)
[2016-12-28] MEDS: NICOTINE 21 MG/24 HOURS TOPICAL PATCH TD SCH (10:25)
[2016-12-28] MEDS: PRENATAL VITAMINS W/ FOLIC ACID TABLET (FP) PO SCH (10:25)
[2016-12-28] MEDS: TRIAMTERENE AND HCTZ - 37.5 MG/25 MG CAPSULE PO SCH (10:25)
[2016-12-28] MEDS: ALBUTEROL SO4 6.7 GM HFA INHALER IH PRN ×2 (10:27→21:10)
[2016-12-28] MEDS ORDERED: PT OWN MED DRAWER 7, Y5N ONE ×2 (10:27→21:10)
[2016-12-28] MEDS: THIAMINE HCL 100 MG TABLET (FP) PO SCH (21:09)
[2016-12-28] MEDS: PANTOPRAZOLE 40 MG TABLET (FP) PO SCH (21:09)
[2016-12-29] MEDS: NICOTINE 21 MG/24 HOURS TOPICAL PATCH TD SCH (10:07)
[2016-12-29] MEDS: TRIAMTERENE AND HCTZ - 37.5 MG/25 MG CAPSULE PO SCH (10:07)
[2016-12-29] MEDS: PRENATAL VITAMINS W/ FOLIC ACID TABLET (FP) PO SCH (10:07)
[2016-12-29] MEDS: ALBUTEROL SO4 6.7 GM HFA INHALER IH PRN ×2 (10:08→21:18)
[2016-12-29] MEDS ORDERED: PT OWN MED DRAWER 7, Y5N ONE ×2 (10:08→21:19)
[2016-12-29] MEDS: PANTOPRAZOLE 40 MG TABLET (FP) PO SCH (21:17)
[2016-12-29] MEDS: THIAMINE HCL 100 MG TABLET (FP) PO SCH (21:17)
[2016-12-30] MEDS: NICOTINE 21 MG/24 HOURS TOPICAL PATCH TD SCH (10:34)
[2016-12-30] MEDS: TRIAMTERENE AND HCTZ - 37.5 MG/25 MG CAPSULE PO SCH (10:34)
[2016-12-30] MEDS: PRENATAL VITAMINS W/ FOLIC ACID TABLET (FP) PO SCH (10:34)
[2016-12-30] MEDS: ALBUTEROL SO4 6.7 GM HFA INHALER IH PRN ×2 (10:35→21:53)
[2016-12-30] MEDS ORDERED: PT OWN MED DRAWER 7, Y5N ONE ×2 (10:35→21:54)
[2016-12-30] MEDS: PANTOPRAZOLE 40 MG TABLET (FP) PO SCH (21:52)
[2016-12-30] MEDS: THIAMINE HCL 100 MG TABLET (FP) PO SCH (21:52)
[2016-12-31] MEDS: NICOTINE 21 MG/24 HOURS TOPICAL PATCH TD SCH (11:14)
[2016-12-31] MEDS: TRIAMTERENE AND HCTZ - 37.5 MG/25 MG CAPSULE PO SCH (11:14)
[2016-12-31] MEDS: PRENATAL VITAMINS W/ FOLIC ACID TABLET (FP) PO SCH (11:14)
[2016-12-31] MEDS: ALBUTEROL SO4 6.7 GM HFA INHALER IH PRN ×2 (11:15→21:29)
[2016-12-31] MEDS ORDERED: PT OWN MED DRAWER 7, Y5N ONE ×2 (11:15→21:29)
[2016-12-31] MEDS: THIAMINE HCL 100 MG TABLET (FP) PO SCH (21:28)
[2016-12-31] MEDS: PANTOPRAZOLE 40 MG TABLET (FP) PO SCH (21:28)
--- NOTE | 2017-01-01 06:52 | PN ---
Psychiatric Progress Note Vital Signs: Vital Signs Period Temp Pulse Resp BP Sys/Monzon Pulse Ox Last 24 Hr 98.8 F 71-78 16-20 109-114/62-69 Date of Session: 01/01/17 Chief Complaint:: Psychiatrist Discharge Note HPI: Patient addressing Alcohol Dependence comorbid with Nicotine Dependence ROS: Cirrhosis of the liver, HTN, Obesity, Thrombocytopenia were medically managed Current Medications: Active Medications Generic Name Dose Route Start Last Admin Trade Name Freq PRN Reason Stop Dose Admin Acetaminophen 650 mg 12/12/16 12:16 Tylenol - PO Q4H PRN FEVER OR PAIN Al Hydroxide/Mg Hydroxide 30 ml 12/12/16 12:16 Mylanta Oral Suspension - PO Q6H PRN DYSPEPSIA Albuterol Sulfate 2 puff 12/13/16 13:16 12/31/16 21:29 Ventolin Hfa Inhaler - IH 2 puff Q4H PRN Administration SHORT OF BREATH/WHEEZING Diphenhydramine HCl 50 mg 12/12/16 12:16 12/21/16 22:00 Benadryl - PO 50 mg HSMR1 PRN Administration FOR ITCHING Eucalyptus/Menthol/Phenol/Sorbitol 1 each 12/12/16 12:16 Cepastat Lozenge - MM Q4H PRN SORE THROAT Guaifenesin 10 ml 12/12/16 12:16 Robitussin Dm - PO Q6H PRN COUGH Ibuprofen 400 mg 12/12/16 12:16 Motrin - PO Q6H PRN PAIN Loperamide HCl 4 mg 12/12/16 12:16 Imodium - PO Q6H PRN DIARRHEA Magnesium Hydroxide 30 ml 12/12/16 12:16 Milk Of Magnesia - PO DAILY PRN CONSTIPATION Nicotine 21 mg 12/13/16 10:00 12/31/16 11:14 Nicoderm Patch - TD Not Given DAILY ELIZ Nicotine Polacrilex 4 mg 12/12/16 12:16 Nicorette Gum - BUC Q2H PRN NICOTINE REPLACEMENT RX Pantoprazole Sodium 40 mg 12/12/16 22:00 12/31/16 21:28 Protonix - PO 40 mg HS ELIZ Administration Multivit/Folic Acid/Iron 1 tab 12/13/16 10:00 12/31/16 11:14 Vitamins (Sjr) - PO 1 tab DAILY ELIZ Administration Pseudoephedrine/Triprolidine 1 combo 12/12/16 12:16 Actifed - PO TID PRN NASAL CONGESTION Thiamine HCl 100 mg 12/12/16 22:00 12/31/16 21:28 Vitamin B1 - PO 100 mg HS ELIZ Administration Triamterene/HCTZ 1 cap 12/13/16 10:00 12/31/16 11:14 Dyazide 25/37.5mg PO 1 cap DAILY ELIZ Administration Current Side Effect: No Lab tests ordered: Yes Lab tests reviewed: Yes Provider note:: Patient will complete this program on 01/02/17. He has met his treatment goals and will continue to address his issues in outpatient treatment at [facility] at [address] [place] [address]. Told speech writer that from his paticipation in this program, he has learned to identify his triggers and the way to avoid them in order to maintain sobriety. He is stable for discharge on 01/02/17 Total face to face time:: 35 Mental Status Exam - Mental Status Exam Alert and Oriented to: Time, Place, Person Cognitive Function: Fair Patient Appearance: Well Groomed Mood: Hopeful, Euthymic Affect: Appropriate Patient Behavior: Cooperative Speech Pattern: Clear Voice Loudness: Normal Thought Process: Intact Thought Disorder: Not Present Hallucinations: Denies Suicidal Ideation: Denies Homicidal Ideation: Denies Insight/Judgement: Fair Sleep: Fair Appetite: Good Muscle strength/Tone: Normal Gait/Station: Normal Psychiatric Treatment Plan - Problem List (1) Alcohol dependence Current Visit: No (2) Nicotine dependence Current Visit: No Qualifiers: Nicotine product type: cigarettes Substance use status: uncomplicated Qualified Code(s): F17.210 - Nicotine dependence, cigarettes, uncomplicated (3) GI bleed Current Visit: No (4) Cirrhosis of liver Current Visit: No Qualifiers: Hepatic cirrhosis type: alcoholic cirrhosis (5) HTN (hypertension) Current Visit: No Qualifiers: Hypertension type: essential hypertension Qualified Code(s): I10 - Essential (primary) hypertension (6) Obesity Current Visit: No (7) Thrombocytopenia Current Visit: No Initial treatment plan: Patient will be discharged tomorrow and referred to [facility] for outpatient treatment
[2017-01-01] MEDS: PRENATAL VITAMINS W/ FOLIC ACID TABLET (FP) PO SCH (10:24)
[2017-01-01] MEDS: TRIAMTERENE AND HCTZ - 37.5 MG/25 MG CAPSULE PO SCH (10:24)
[2017-01-01] MEDS: NICOTINE 21 MG/24 HOURS TOPICAL PATCH TD SCH (10:24)
[2017-01-01] MEDS: ALBUTEROL SO4 6.7 GM HFA INHALER IH PRN ×2 (10:26→21:18)
[2017-01-01] MEDS: THIAMINE HCL 100 MG TABLET (FP) PO SCH (21:17)
[2017-01-01] MEDS: PANTOPRAZOLE 40 MG TABLET (FP) PO SCH (21:17)
[2017-01-01] MEDS ORDERED: PT OWN MED DRAWER 7, Y5N ONE (21:18)
[2017-01-02 06:53] VITALS: TEMP 97.8
[2017-01-02] MEDS: PRENATAL VITAMINS W/ FOLIC ACID TABLET (FP) PO SCH (09:42)
[2017-01-02] MEDS: NICOTINE 21 MG/24 HOURS TOPICAL PATCH TD SCH (09:42)
[2017-01-02] MEDS: TRIAMTERENE AND HCTZ - 37.5 MG/25 MG CAPSULE PO SCH (09:42)
[2017-01-02] MEDS ORDERED: PT OWN MED DRAWER 7, Y5N ONE (09:43)
[2017-01-02 10:58] VITALS: BP 124/67; PULSE 73
== END 2017-01-02 10:15 | disposition home or self-care (01) | DRG 772 ==
LOC: YASAS 10:35 → Y3W 10:36
PROVIDERS: ADMIT Psychiatry & Neurology Psychiatry; ATTEND Psychiatry & Neurology Psychiatry
PROC: HZ42ZZZ Group Counseling for Substance Abuse Treatment, Cognitive-Behavioral (ICD-10-PCS; principal; 2017-01-02)
DX: F10.230 Alcohol dependence with withdrawal, uncomplicated (principal); F17.210 Nicotine dependence, cigarettes, uncomplicated; K70.30 Alcoholic cirrhosis of liver without ascites; I10 Essential (primary) hypertension; E66.09 Other obesity due to excess calories; Z68.33 Body mass index [BMI] 33.0-33.9, adult
CPT/HCPCS: 36415; 80053; 85027; 85610